=== PATIENT | male | born 1995 | race Caucasian/White ===

== ENCOUNTER 2017-04-28 17:03 | Emergency (ER) | payer OTHER ==
[~2017-04-28] VITALS: Ht 177.8 cm; Wt 121.0 kg
[~2017-04-28 17:03] MED LIST: AMPH1TAB36 PO; DEXT15TA PO; PROZ20CA11 PO
[2017-04-28 17:07] VITALS: PULSE 77; RESP 16; TEMP 98.7; O2SAT 97
[2017-04-28] MEDS ORDERED: SILVER SULFADIAZINE 1% CR 50 GM JAR TOPICAL ONE (18:00)
[2017-04-28] MEDS ORDERED: TETANUS/DIPHTHERIA TOXOID ADULT 0.5 ML VIAL IM ONE (18:00)
[2017-04-28] MEDS ORDERED: IBUPROFEN 800 MG TAB PO ONE (18:00)
[2017-04-28] MEDS ORDERED: ACETAMINOPHEN/HYDROcodone 325 MG/5 MG TAB PO ONE (18:00)
[2017-04-28] MEDS ORDERED: NORC5TAB PO (18:34)
[2017-04-28] MEDS ORDERED: SILV1CRE20 TOPICAL (18:34)
[2017-04-28] MEDS ORDERED: IBUP1TAB7 PO (18:34)
--- NOTE | 2017-04-28 18:38 | PD ---
HPI Chief Complaint: Burn Time Seen by Provider: 17:43 Travel History International Travel<30 days: No Contact w/Intl Traveler<30days: No Traveled to known affect area: No History of Present Illness HPI Patient comes to the emergency department complaining of a steam burn to his right forearm that occurred shortly prior to arrival. Patient states he was changing out the deep friers at work when a steam came up and caused a burn to his right forearm. Patient reports cleaning area with soap and water and holding it under lukewarm water prior to coming to the emergency department with improvement of symptoms. Denies any radiation of pain. Pain is worse when he tries to flex his forearm. Denies any numbness or tingling. Reports his tetanus shot is not up-to-date. PFSH Past Medical History Cancer: No Cardiovascular Problems: No Diabetes: No Diminished Hearing: No Glaucoma: No Hepatitis: No Hiatal Hernia: No Hypertension: No Medical other: No Respiratory: No Immunizations Current: Yes Thyroid Disease: No Tetanus Vaccination: Unknown Past Surgical History Gynecologic Surgery: Yes (CIRCUMCISION) Social History Alcohol Use: No Tobacco Use: No Substance Use: No Allergies-Medications (Allergen,Severity, Reaction): Coded Allergies: penicillin G (Unverified Allergy, Severe, Anaphylaxis, 04/28/17) Reported Meds & Prescriptions Reported Meds & Active Scripts Active Silvadene Topical (Silver Sulfadiazine) 1 % Cream 1 Applic TOPICAL BID Ibuprofen 800 Mg Tab 800 Mg PO Q8H PRN [place] (Hydrocodone-Acetaminophen) 5 Mg-325 Mg Tab 1 Tab PO Q8HR PRN Review of Systems Except as stated in HPI: all other systems reviewed are Neg Physical Exam Narrative GENERAL: Well-developed, overly nourished, in no acute distress, and non-ill appearing. SKIN: First-degree burn noted over the volar surface of her right forearm covering three quarters of it. It is not circumferential. There is no blistering. It is tender to palpation. No crepitus. Neurovascularly intact distally. HEAD: Atraumatic. Normocephalic. EYES: Pupils equal and round. EOMI. No scleral icterus. No injection or drainage. ENT: No nasal bleeding or discharge. Mucous membranes pink and moist. NECK: Trachea midline. Supple. No nuclear rigidity. CARDIOVASCULAR: Radial pulses 2+, intact, and equal bilaterally. Capillary refill less than 2 seconds. RESPIRATORY: No accessory muscle use. No respiratory distress. MUSCULOSKELETAL: No obvious deformities. No clubbing. No cyanosis. No edema. Full range of motion. Wrist: FROM and equal BL with passive flexion, extension , and pronation/supination. Capillary refill less than 2 seconds distal to injury and equal BL. FROM distal to injury and equal BL. Strength distal to injury equal BL. NV intact distal to injury. Flexion and extension of thumb equal BL. Equal strength and movement with abduction/adductions of BL fingers. 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 No tenderness to the anatomical snuffbox. NEUROLOGICAL: Awake and alert. No obvious cranial nerve deficits. Motor grossly within normal limits. Normal speech. PSYCHIATRIC: Appropriate mood and affect; insight and judgment normal. Data Data Last Documented VS Vital Signs Date Time Temp Pulse Resp B/P (MAP) Pulse Ox O2 Delivery O2 Flow Rate FiO2 04/28/17 18:54 72 16 175/95 (121) 97 04/28/17 17:07 98.7 Orders Orders Wound Care (04/28/17 17:47) Tetanus/Diphtheria Tox Adult (Tetanus/Di (04/28/17 18:00) Silver Sulfadia 1% Crm (50 Gm) (Silvaden (04/28/17 18:00) Ibuprofen (Motrin) (04/28/17 18:00) Acetamin-Hydrocod 325-5 Mg ([place] 5-325 (04/28/17 18:00) Ed Discharge Order (04/28/17 18:39) [facility] Medical Decision Making Medical Screen Exam Complete: Yes Emergency Medical Condition: Yes Differential Diagnosis First-degree burn, second-degree burn, third-degree burn Narrative Course The patient suffered a first degree burn to the body. There is no blistering and the skin is dry. There is mild tenderness and sensation is intact. There is no evidence of nonaccidental trauma to the patient. There is no evidence to suggest airway involvement by history and exam. Plan of care was discussed with pain medication, specifically NSAIDS. Also the patient was instructed to avoid sun exposure to the area until fully resolved and use sun block when out in sun to avoid further injury. Patient in no obvious distress upon re-evaluation. Patient was asked if they wanted to speak to my attending, which the patient did not wish to do at this time. Any questions/concerns in reference to patient diagnosis/condition discussed and clarified prior to patient's discharge. Reinforced sheer importance of close follow up with patient's primary physician or primary care clinic. Instructed patient to return to ED immediately, if symptoms return/ worsen. Patient showed understanding of above instructions. Further instructions and recommendations were detailed in discharge paperwork. Patient ambulated without difficulty out of ED at discharge. Diagnosis Primary Impression: First degree burn Patient Instructions: General Instructions, Superficial Burn (ED) Additional Instructions: Follow-up with your Workmen's Comp. provider in 24-48 hours. Take all medication as prescribed. Clean affected area gently with soap and water. Apply thin layer of Silvadene and change dressing twice daily after washing. Return to the emergency department if symptoms get worse. Med/Other Pt SpecificInfo: Prescription(s) given Scripts Silver Sulfadiazine Topical (Silvadene Topical) 1 % Cream 1 APPLIC TOPICAL BID for Wound Management, #50 GM 0 Refills Prov: Kevin Lino MD 04/28/17 Ibuprofen (Ibuprofen) 800 Mg Tab 800 MG PO Q8H Y for Pain/Inflammation, #30 TAB 0 Refills Prov: Kevin Lino MD 04/28/17 Hydrocodone-Acetaminophen ([place]) 5 Mg-325 Mg Tab 1 TAB PO Q8HR Y for PAIN GREATER THAN 7, #7 TAB 0 Refills Prov: Kevin Lino MD 04/28/17 Disposition: 01 DISCHARGE HOME Condition: Stable Anoop Hay Apr 28, 2017 18:38
[2017-04-28 18:54] VITALS: BP 175/95
== END 2017-04-28 18:54 | disposition home or self-care (01) ==
LOC: PHEFT 17:03
DX: T22.111A Burn of first degree of right forearm, initial encounter (principal); T31.0 Burns involving less than 10% of body surface; X13.1XXA Other contact with steam and other hot vapors, initial encounter; Y99.0 Civilian activity done for income or pay; Z88.0 Allergy status to penicillin
CPT/HCPCS: 16000; 90471; 90714